=== PATIENT | male | born 1990 | race Caucasian/White ===

== ENCOUNTER 2019-05-25 20:51 | Observation (INO) | payer MEDICAID, SELFPAY ==
--- NOTE | ~2019-05-25 | CT_ITS ---
EXAMINATION: CT pelvis w con EXAM DATE: 05/26/2019 05:12 INDICATION: Penis infection. Ruptured abscess along shaft of penis with pus drainage, edema. TECHNIQUE: Spiral CT pelvis w con was performed following intravenous injection of 100 mL Omnipaque 3 50. Axial, coronal and sagittal images were reviewed. The dose-length product (DLP) for this examin ation was 205.26 mGy-cm. The exposure was tailored according to patient size (auto mA exposure contr ol), and iterative reconstruction (ASIR) was used as additional dose reduction technique. There is n o prior study for comparison. FINDINGS: There is moderate diffuse edema suspected along the shaft of the penis without focal rim-en hancing collection/abscess or gas/emphysema. The perineum and prostate are unremarkable. Cellulitis? There is 3 mm left-sided scrotalith. Normal appendix. Bladder, ischial fossa, rectosigmoid colon are unremarkable. No small bowel dilation . No pelvic abscess. Sclerotic focus in right femoral neck likely bone island. IMPRESSION: Moderate penile edema. Cellulitis? Reviewed, dictated and finalized at location B. [facility] [place]
[2019-05-25 21:24] VITALS: BP 114/64; PULSE 118; RESP 22; TEMP 38.3; O2SAT 100
--- NOTE | 2019-05-26 03:00 | ED.MALEGU ---
HPI - Male Genitourinary General Chief complaint: Urogenital-Male Stated complaint: BUMP ON PENIS Time Seen by Provider: 05/26/19 02:50 Source: patient and RN notes reviewed Mode of arrival: ambulatory Limitations: no limitations History of Present Illness HPI Narrative: A 28 y/o male presents to the ED with a worsening abscess on his penis that appeared 3 days ago. He reports associated pain, swelling, and erythema. He notes that it popped while in triage and that the pain has lessened since then. He denies any fevers, chills, N/V/D, ABD pain, CP, or SOB. Complaint: other (Abscess on penis) Onset (ago): day(s) (3) Duration: progressively worsening Location: penis Associated symptoms: Reports swelling and other (pain and erythema) Related Data Allergies Allergy/AdvReac Type Severity Reaction Status Date / Time No Known Allergies Allergy Verified 10/25/14 17:44 Review of Systems Review of Systems: All systems reviewed & are unremarkable except as noted in HPI and below Constitutional: Constitutional: Denies chills and Denies fever(s) Cardiovascular: Cardiovascular: Denies chest pain Respiratory: Respiratory: Denies dyspnea Gastrointestinal: Gastrointestinal: Denies abdominal pain, Denies diarrhea, Denies nausea and Denies vomiting Genitourinary: Genitourinary: Reports other (painful abscess on his penis with associated swelling and erythema) [facility] Past Medical History Medical History (Updated 05/26/19 @ 05:45 by Maxi Espino DO) ADHD Arm fracture, left Asthma Surgical History Surgical History (Updated 05/26/19 @ 03:14 by Aaron Arredondo) No history of previous surgery Social History Social History (Updated 05/26/19 @ 03:12 by Aaron Arredondo) Smoking packs per day: 0.5 Smoking cigarettes per day: 10.0 Smoking status: Current every day smoker Gender identity (if verbalized by the patient): Male Exam Narrative: Exam Narrative: APPEARANCE: No acute distress, nontoxic, resting in bed EYES: EOMI HEENT: Normocephalic, atraumatic, OMM RESPIRATORY: No respiratory distress Clear to auscultation bilaterally with no rhonchi wheezing or rales. CARDIOVASCULAR: Regular rate and rhythm without murmurs rubs or gallops. ABDOMINAL: Soft, nontender, nondistended, no rebound or guarding : Circumcised male, the penile shaft is diffusely swollen and erythematous the foreskin is swollen at the dorsal base of the penile shaft there is a draining abscess with purulent drainage there is no erythema or swelling of the scrotum MUSCULOSKELETAl: Moves all extremities. No clubbing, cyanosis or edema. NEURO: Awake and alert. Following commands, speech normal, no focal deficits SKIN:: Warm, dry. No rashes lesions or abrasions PSYCHIATRIC: Normal affect/mood, Course Course Emergency Course: Cussed with Dr. Marcelino presentation work-up. Agrees with admission at this time Discussed with Dr. West for urology presentation work-up. Agrees with admission of vancomycin at this time Discussed with patient and family results of workup and diagnosis. Discussed need for admission. Patient and family understand and agree to current treatment plan Vital Signs Vital signs: Vital Signs Temperature 101.0 F H 05/25/19 21:24 Pulse Rate 118 H 05/25/19 21:24 Respiratory Rate 22 H 05/25/19 21:24 Blood Pressure 114/64 05/25/19 21:24 Pulse Oximetry 100 05/25/19 21:24 Temperature 101.0 F H 05/25/19 21:24 Pulse Rate 118 H 05/25/19 21:24 Respiratory Rate 22 H 05/25/19 21:24 Blood Pressure 114/64 05/25/19 21:24 Pulse Oximetry 100 05/25/19 21:24 MDM - Male Genitourinary Lab Data Result diagrams: 05/26/19 03:29 05/26/19 03:29 Labs: Lab Results 05/26/19 05/26/19 05/26/19 Range/Units 03:29 03:29 03:30 WBC 8.9 (4.5-10.0) K/mm3 RBC 4.80 (4.6-6.20) M/mm3 Hgb 13.6 L (14.0-18.0) g/dL Hct 40.8 L (42.0-52.0) % MCV 85.0 (80-100) fl MCH 28.3 (26-34)
[2019-05-26] MEDS: LACTATED RINGERS 1,000 ML 999 ML IV CONT (03:28)
[2019-05-26 03:37] LABS: Basophils Percent Auto 0.4 % (0.2-1.2); Eosinophils Absolute Auto 0.1 K/mm3 (0-0.3); Eosinophils Percent Auto 0.8 % (0-4.4); Hematocrit 40.8 % (42.0-52.0); Hemoglobin 13.6 g/dL (14.0-18.0); Immature Granulocyte Absolute 0.02 K/mm3 (0.00-0.031); Immature Granulocyte Percent A 0.2 % (0-0.5); Lymphocytes Absolute Auto 1.62 K/mm3 (0.9-3.2); Lymphocytes Percent Auto 18.2 % (18.3-44.2); Mean Corpuscular HGB Conc 33.3 g/dl (32-36); Mean Corpuscular Hemoglobin 28.3 pg (26-34); Mean Platelet Volume 10.6 fl (7.4-10.4); Monocytes Absolute Auto 0.8 K/mm3 (0.1-0.6); Monocytes Percent Auto 9.3 % (2.6-8.5); Neutrophils Absolute Auto 6.3 K/mm3 (1.3-6.7); Neutrophils Percent Auto 71.1 % (45.5-73.1); Platelet Count Result 280 k/mm3 (150-375); Red Cell Distribution Width 13.2 % (11.5-14.5); White Blood Count 8.9 K/mm3 (4.5-10.0)
[2019-05-26 03:49] LABS: Lactic Acid Reflex 1.3 mmol/L (0.7-2.1)
[2019-05-26 03:49] LABS: Alanine Aminotransferase 11 U/L (4-50); Albumin Level 4.3 g/dL (3.5-5.1); Alkaline Phosphatase 57 U/L (38-126); Aspartate Amino Transferase 15 U/L (17-59); Bilirubin,Total 0.5 mg/dL (0.2-1.3); Blood Urea Nitrogen 12 mg/dL (9-20); Calcium 9.1 mg/dL (8.4-10.2); Carbon Dioxide 27 mmol/L (22-30); Chloride 99 mmol/L (98-107); Estimated CRCL calculation 96 ml/min; Estimated Glomerular Filt Rate > 60; Glucose 134 mg/dL (75-110); Potassium 3.6 mmol/L (3.4-5.0); Sodium 138 mmol/L (137-145)
[2019-05-26 05:15] LABS: Add Urine Microscopic? NO; Appearance Urine Clear (Clear); Bilirubin Urine Negative (Negative); Blood Urine Negative (Negative); Color Urine Yellow (Yellow); Glucose Urine UA Negative (Negative); Ketones Urine Negative (Negative); Leukocyte Esterase Ur Negative LEU/UL (Negative); Nitrate Urine Negative (Negative); Protein Urine Negative (Negative); Specific Grav Ur 1.013 (1.001-1.035); Urobilinogen Urine Negative mg/dL (<2.0)
--- NOTE | 2019-05-26 05:28 | PC.NURSE ---
spoke with mother, pt is sleeping. pt has not had a prior suicide attempt or been hospitalized.
--- NOTE | 2019-05-26 06:41 | ADMGEN ---
This patient, Efren Flower, was admitted to Medical Room 247-. Patient/family oriented to hospital policies and general routines including ID bracelet, bed and alarms, visiting hours, pain management, procedures, bathroom and other care routines, personal items, smoking policy, room service/diet, and visiting hours. Valuables list has been completed. Information on how to activate the Rapid Response Team has been discussed. Patient/Family are encouraged to report perceived risks to care and to ask questions if they do not understand what they are told or what they should do.
[2019-05-26 06:45] VITALS: BP 100/53; PULSE 79; RESP 16; TEMP 35.9; O2SAT 100; BMI 21.2
[2019-05-26] MEDS: KETOROLAC 30 MG/ML VIAL (*BKC) IV PUSH (08:45)
--- NOTE | 2019-05-26 10:12 | WPDURCON ---
Assessment and Plan Assessment and plan (1) Abscess of shaft of penis: Code(s): N48.29 - Other inflammatory disorders of penis Status: Acute Assessment and Plan: It has drained spontaneously. There is no drainable fluid collection. Patient states the swelling and erythema has much improved. He states he overall feels better. Cultures are pending. He can likely be discharged home on 2 weeks of either Augmentin or clindamycin. No need for surgical intervention today. I will allow him to eat. Urology Consult Note HPI Date Seen: 05/26/19 Requesting Physician: Kelechi Marcelino MD Primary Care Provider: CRITICAL CARE CNS PHYSICIAN Consult Narrative Narrative: Efren Flower is a 28 year old male who was noted penile pain and swelling for the last 3-4 days. No significant voiding issues. He notice a pustule on the dorsal aspect of the base of his penis. This prompted evaluation in the ER. While in the ER he squeezed the pustule in and drained purulent fluid. The swelling has improved. He denies any high spiking fevers. He was admitted the hospital placed on IV antibiotics. He denies any previous history of groin abscesses. He is overall feeling improved. Review of Systems Review of Systems: All systems reviewed & are unremarkable except as noted in HPI and below Genitourinary: Genitourinary: Denies dysuria PMFSH Past Medical History Medical History (Updated 05/26/19 @ 05:45 by Maxi Espino DO) ADHD Arm fracture, left Asthma Surgical History Surgical History (Updated 05/26/19 @ 03:14 by Aaron Arredondo) No history of previous surgery Social History Social History (Updated 05/26/19 @ 03:12 by Aaron Arredondo) Smoking packs per day: 1 Smoking cigarettes per day: 20.0 Years smoked: 10 Smoking pack-years: 10.00 Smoking status: Current every day smoker Tobacco type: cigarettes Alcohol intake: unknown Substance use: current Substance use type: marijuana and crack/cocaine Gender identity (if verbalized by the patient): Male Spiritual care concerns: No Agree to blood products: No Meds Home Medications and Allergies Home Medications Medication Instructions Recorded Confirmed Type No Home Medications 05/26/19 05/26/19 History Allergies Allergy/AdvReac Type Severity Reaction Status Date / Time No Known Allergies Allergy Verified 10/25/14 17:44 Vital Signs Vital Signs - 24 hr 05/25/19 21:24 05/26/19 06:45 Temperature 101.0 F H 96.6 F L Pulse Rate 118 H 79 Respiratory Rate 22 H 16 Blood Pressure 114/64 100/53 L Pulse Oximetry 100 100 Exam Const: General: no acute distress Other: States he feels much better. HENMT: Mouth: Yes moist mucous membranes abnormal Other: He has very poor dentition. Eyes: General: appearance normal, both eyes and all related structures Neck: Lymphatic: lymphadenopathy not noted Resp: Effort & Inspection: normal respiratory effort Cardio: Rate: regular rate GI: Inspection: non-distended : Male General Exam: Yes erythema (Of penile shaft. Along with swelling.) Other: He is circumcised. There is an open area at the base of the dorsal aspect of his penis. It appears widely open. It is draining some scant bloody substance. There is no drainable abscess in the area. I examined the CT scan as well and there is no drainable abscess Scrotum is not on vault. Skin: General skin exam: erythema (Of the penile area.) Neuro: Sensory Exam: normal sensation Extrem: General: normal to inspection Psych: Speech and movement: Normal speech and movement present Results Labs CBC & Chem 7: 05/26/19 03:29 05/26/19 03:29 Labs: Short CBC 05/26/19 Range/Units 03:29 WBC 8.9 (4.5-10.0) K/mm3 Hgb 13.6 L (14.0-18.0) g/dL Hct 40.8 L (42.0-52.0) % Plt Count 280 (150-375) k/mm3 [facility] 05/26/19 03:29 Sodium 138 Potassium 3.6 Chloride 99 Carbon Dioxide 27 BUN
[2019-05-26 14:00] VITALS: BP 96/52; PULSE 80; RESP 16; TEMP 36.1; O2SAT 99
--- NOTE | 2019-05-26 16:07 | PM.IMHP ---
H&P: HPI History of Present Illness Chief complaint: SEPSIS,PENILE ABSCESS Narrative: Date of visit 05/26/2019 1100. Efren Flower is a 28 year old white male who presented to the emergency room with swollen red infected perineal area. on dorsum his penis he had a small furuncle developed 2-3 days ago had progressively swollen become more tender. Apparently the waiting room it had opened and drained and started feeling better. He was seen by Urology this a.m. and suggest to continue oral antibiotics as an outpatient. No previous history of skin infections and no history of diabetes Review of Systems Review of Systems: Narrative: Constitutional: Weight has been steady appetite good no fever till the present illness Eye: No double vision scotoma Mouth no pharyngitis laryngitis Pulmonary no shortness breath wheezing or cough CV no chest pain palpitation GI no melena hematochezia diarrhea as per present illness no difficulty with urination no dysuria Muscle skeletal no particular joint discomfort Integument no skin breakdown rashes other than presenting infection Psych no in due to depression Neuro dosing could be at present time has had in the distant past no seizures Remainder review of systems if not documented here were evaluated found to be negative [facility] Past Medical History Medical History (Updated 05/26/19 @ 05:45 by Maxi Espino DO) ADHD Arm fracture, left Asthma Surgical History Surgical History (Updated 05/26/19 @ 03:14 by Aaron Arredondo) No history of previous surgery Family History Family History Father No problems noted. Mother No problems noted. Social History Social History (Updated 05/26/19 @ 03:12 by Aaron Arredondo) Smoking packs per day: 1 Smoking cigarettes per day: 20.0 Years smoked: 10 Smoking pack-years: 10.00 Smoking status: Current every day smoker Tobacco type: cigarettes Alcohol intake: unknown Substance use: current Substance use type: marijuana and crack/cocaine Gender identity (if verbalized by the patient): Male Spiritual care concerns: No Agree to blood products: No Meds Home Medications and Allergies Home Medications Medication Instructions Recorded Confirmed Type No Home Medications 05/26/19 05/26/19 History Allergies Allergy/AdvReac Type Severity Reaction Status Date / Time No Known Allergies Allergy Verified 10/25/14 17:44 Vital Signs Vital Signs - 24 hr 05/25/19 21:24 05/26/19 06:45 05/26/19 14:00 Temperature 38.3 C H 35.9 C L 36.1 C L Pulse Rate 118 H 79 80 Respiratory Rate 22 H 16 16 Blood Pressure 114/64 100/53 L 96/52 L Pulse Oximetry 100 100 99 Exam Narrative: Exam Narrative: At present time blood pressure 100/52 temperature 36.6? pulse 78. On admission has T-max of 38.3? Pupils equal reactive to light sclera anicteric Mouth normal central upper tooth missing Neck supple no adenopathy thyromegaly carotid bruits Lungs clear CV no murmurs gallops rubs or clicks Abdomen is soft nontender no masses Extremities without edema distal pulses 2+ Neuro alert pleasant cooperative no focal deficits is a circumcised male DS shaft is sent for scan is slightly air edematous and erythematous and there is area on the proximal dorsum that has obviously drained, scrotum is spared H&P: Results Labs Labs: Short CBC 05/26/19 Range/Units 03:29 WBC 8.9 (4.5-10.0) K/mm3 Hgb 13.6 L (14.0-18.0) g/dL Hct 40.8 L (42.0-52.0) % Plt Count 280 (150-375) k/mm3 BMP 05/26/19 03:29 Sodium 138 Potassium 3.6 Chloride 99 Carbon Dioxide 27 BUN 12 Creatinine 1.00 Glucose 134 H Calcium 9.1 Liver Function 05/26/19 Range/Units 03:29 Total Bilirubin 0.5 (0.2-1.3) mg/dL AST 15 L (17-59) U/L ALT 11 (4-50) U/L Alkaline Phosphatase 57 (38-126) U/L Albumin 4.3 (3.5-5.1) g/dL Urine 05/26/19 Range/Units 04:59 Urine Color Yellow (Yellow) Urine
--- NOTE | 2019-05-28 18:21 | PM.DS ---
DS: Diagnosis Admitting Diagnosis Admitting Diagnosis: Other inflammatory disorders of penis Discharge Diagnosis (1) Abscess of shaft of penis: Code(s): N48.29 - Other inflammatory disorders of penis Status: Acute Assessment and Plan: Opened and drained spontaneously. Cultures were obtained and will probably be either strep per Staph bacteria. Receiving vancomycin and will discharge home on oral antibiotics Augmentin and doxycycline to cover for both stress bands to help (2) Sepsis: Code(s): A41.9 - Sepsis, unspecified organism Status: Acute Assessment and Plan: By criteria of tachycardia and borderline fever probably met diagnosis of sepsis which quickly resolved. Lactic acid normal. Will plan on discharging on oral antibiotics as per urology recommendation also DS: Summary Hospital Course Hospital Course: 28-year-old white male presented with small furuncle abscess that is the proximal shaft of his penis. Drain spontaneously in the emergency room and swelling subsided. With seen by Urology fell could be discharged on oral medication and follow-up with primary. Pelvic rest until healed Time Spent with Patient Time attestation: Total time spent providing and/or coordinating discharge services: Time spent: Less than 30 minutes Exam Narrative: Exam Narrative: Condition on discharge: Blood pressure 100/60 and had been afebrile for 12 hours. Swelling of penis had subsided , no further drainage, discharged home on oral antibiotics DS: Data Data Completed and Pending Labs on day of discharge: Preliminary micro results at discharge 05/26/19 03:29 Blood Culture - Preliminary Blood 05/26/19 04:59 Blood Culture - Preliminary Blood 05/26/19 03:31 Anaerobic Culture - Preliminary Abscess Aerobic Culture - Preliminary Discharge Plan Discharge Attending physician on discharge: Jitendra Dixon Consulting providers: Ronan Cullen ; Vinay West Discharging Clinician: Jitendra Dixon Anticipated Discharge Date/Time: 05/26/19 16:23 Patient Disposition: Home, Self-Care Activity: as tolerated and pelvic rest Diet: as tolerated Patient Instructions: Antibiotic Form, How to Stop Smoking (DC) Stand Alone Forms: General Discharge Information Follow-up/Referrals: Ronan Cullen MD [Physician] - 2 Weeks Discharge Medications: New amoxicillin-pot clavulanate [Augmentin] 875-125 mg tablet 1 tablet PO Q12H Qty: 14 RF: 0 doxycycline hyclate 100 mg capsule 100 mg PO DAILY Qty: 14 RF: 0 tramadol [Ultram] 50 mg tablet 50 mg PO Q6H PRN (Reason: pain) Qty: 20 RF: 0 No Action No Home Medications RF: 0 Date of admission: 05/26/19 05:23 Primary Care Provider: PHYSICIAN,POLICE CRIME SCENE TECHNICIAN Admitting Provider: Kelechi Marcelino Discharge Date/Time: 05/26/19 19:35 Attending physician on admission: Kelechi Marcelino Condition: Stable
== END 2019-05-26 19:35 | disposition home or self-care (01) ==
LOC: ANHED 05-26 05:31 → ANH2MED 05-26 05:45
PROVIDERS: Admitting Provider Family Medicine; Emergency Provider Emergency Medicine; Visit Provider Internal Medicine
DX: A41.9 Sepsis, unspecified organism (principal); N48.21 Abscess of corpus cavernosum and penis; F17.210 Nicotine dependence, cigarettes, uncomplicated
CPT/HCPCS: 36415; 72193; 80053; 81003; 83605; 85025; 87040; 87070; 87075; 87076; 87077; 87185; 87205; 96365; 96366; 96367; 96375; 99285; G0378; G0379; J0131; J1885; J3370; J7120; Q9967

== ENCOUNTER 2019-07-07 12:09 | Emergency (ER) | payer MEDICAID, SELFPAY ==
[2019-07-07 12:33] VITALS: BP 113/64; PULSE 92; RESP 18; TEMP 36.3; O2SAT 100
--- NOTE | 2019-07-07 12:34 | ECG_ITS ---
Measurements Intervals [place] Rate: 86 P: -15 OR: 136 QRS: -22 QRSD: 101 T: -3 QT: 339 QTc: 406 Interpretive Statements SINUS RHYTHM VOLTAGE CRITERIA FOR LVH MINIMAL Q WAVES- ANTEROLAT/LAT LEADS BORDERLINE ECG Electronically Signed On 07-07-2019 13:43:50 CDT by Royer Garza D.O.
--- NOTE | 2019-07-07 12:46 | PC.NURSE ---
at 1232 pt initially told provider no transportation. aware of possible need for further evaluation in er and possibility of transfer by ems. stated sister lives down the street and may be able to provide transportion if needed.
--- NOTE | 2019-07-07 12:47 | ED.CHESTPAIN ---
HPI - Chest Pain General Chief Complaint: Chest Pain Stated Complaint: Chest Pain Time Seen by Provider: 07/07/19 12:47 Source: patient and RN notes reviewed History of Present Illness HPI narrative: Patient is a 29-year-old male that presents the urgent care with complaints of left-sided chest pain. Patient states that he was tased by police in the back 2 days ago for a possible warrant. Patient states that he has had chest pain ever since he left the halfway that day. Patient states is been consistent. Denies of any recent drug or alcohol use. Patient denies any radiation of the pain down the arm or to the jaw. States that it feels tight in the left chest . Patient denies any shortness of breath. No other acute complaints. 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 No acute distress noted. Patient read the plan of care. Related Data Home Medications Medication Instructions Recorded Confirmed No Home Medications 05/26/19 05/26/19 Allergies Allergy/AdvReac Type Severity Reaction Status Date / Time No Known Allergies Allergy Verified 10/25/14 17:44 Review of Systems Review of Systems: Narrative: CONSTITUTIONAL: Denies fever, chills, or sweats. EYES: Denies visual changes, redness, or discharge. ENT: Denies rhinorrhea, congestion, sore throat, or otalgia. CARDIOVASCULAR: Reports of left-sided chest pain without palpitations or radiation RESPIRATORY: Denies cough or dyspnea. GASTROINTESTINAL: Denies abdominal pain, nausea, vomiting, or diarrhea. GENITOURINARY: Denies dysuria or hematuria. SKIN: Denies rash or itching. MUSCULOSKELETAL: Denies back pain, joint pain, or myalgia. NEUROLOGIC: Denies headache, numbness, or weakness. All other systems reviewed are negative, except as documented in HPI. [facility] Past Medical History Medical History (Updated 07/07/19 @ 12:57 by SYLWIA Harris) ADHD Arm fracture, left Asthma Surgical History Surgical History (Updated 05/26/19 @ 03:14 by Aaron Arredondo) No history of previous surgery Family History Family History (Updated 05/26/19 @ 16:17 by Jitendra Dixon MD) Father No problems noted. Mother No problems noted. Social History Social History (Updated 05/26/19 @ 03:12 by Aaron Lu Smoking packs per day: 1 Smoking cigarettes per day: 20.0 Years smoked: 10 Smoking pack-years: 10.00 Smoking status: Current every day smoker Tobacco type: cigarettes Alcohol intake: unknown Substance use: current Substance use type: marijuana and crack/cocaine Gender identity (if verbalized by the patient): Male Spiritual care concerns: No Agree to blood products: No Comments At the time of my signature, I reviewed and agree with the nursing past medical, surgical, social, and family history. There is no relevant family history pertinent to the patient complaint. Exam Narrative: Exam Narrative: GENERAL: This is a well-nourished, well-developed patient, in no apparent distress. HEAD: normocephalic, atraumatic. EYES: PERRL. Sclera clear/white. Vision is grossly intact. EARS: External ears normal, auditory canals clear and without drainage, TMs normal without perforation. Hearing grossly intact. NOSE: External nose normal with no obvious nasal discharge, nares without redness, no rhinorrhea. THROAT: Mucous membranes moist, posterior pharynx clear. NECK: Neck supple, non-tender without lymphadenopathy, masses or thyromegaly. CARDIOVASCULAR: Regular rate and rhythm without murmurs, gallops, or rubs. Nonreproducible left chest pain RESPIRATORY: Clear to auscultation. Breath sounds equal bilaterally. No wheezes, rales, or rhonchi. SKIN: warm, intact with no suspicious lesions or rash, good texture and turgor. NEURO: awake, alert, and oriented to person, place and time. There were no obvious focal neurologic abnormalities. EXTREMITIES: No clubbing, cyanosis, or edema. Course Vital
--- NOTE | 2019-07-07 12:52 | PC.NURSE ---
screen machine operator at bedside. pt has attempted to find tranportation but unable at this time.
== END 2019-07-07 12:58 | disposition left against medical advice (07) ==
PROVIDERS: Emergency Provider Nurse Practitioner Family
DX: R07.9 Chest pain, unspecified (principal); F17.210 Nicotine dependence, cigarettes, uncomplicated; F90.9 Attention-deficit hyperactivity disorder, unspecified type; J45.909 Unspecified asthma, uncomplicated
CPT/HCPCS: 93005; 99213; G0463

== ENCOUNTER 2019-07-07 13:36 | Emergency (ER) | payer MEDICAID, SELFPAY ==
--- NOTE | ~2019-07-07 | XR_ITS ---
EXAMINATION: XR chest 2V DATE: 07/07/2019 14:10 INDICATION: Midsternal chest pain. Shortness of breath. TECHNIQUE: Frontal and lateral views of the chest were obtained. COMPARISON: Chest 2 views 05/21/2013 FINDINGS: The chest demonstrates clear lungs without pneumonia, pleural effusion, or pneumothorax. Th e heart size is normal. There are multiple old healed right rib fractures. There is an old healed fra cture of right clavicle. IMPRESSION: 1. No acute cardiopulmonary disease. Reviewed, dictated and finalized at location A.
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
--- NOTE | 2019-07-07 13:59 | ECG_ITS ---
Measurements Intervals [place] Rate: 83 P: 75 ID: 132 QRS: 81 QRSD: 100 T: 56 QT: 343 QTc: 403 Interpretive Statements SINUS RHYTHM MINIMAL Q WAVES- ANTEROLAT/INF LEADS BORDERLINE ECG Electronically Signed On 07-07-2019 14:02:42 CDT by Royer Garza D.O.
[2019-07-07 14:01] VITALS: BP 116/69; PULSE 83; RESP 17; TEMP 36.3; O2SAT 100
[2019-07-07 14:07] LABS: Basophils Absolute Auto 0.1 K/mm3 (0.0-0.1); Basophils Percent Auto 0.9 % (0.2-1.2); Eosinophils Absolute Auto 0.1 K/mm3 (0-0.3); Hemoglobin 14.8 g/dL (14.0-18.0); Immature Granulocyte Absolute 0.02 K/mm3 (0.00-0.031); Immature Granulocyte Percent A 0.3 % (0-0.5); Lymphocytes Absolute Auto 1.57 K/mm3 (0.9-3.2); Lymphocytes Percent Auto 24.1 % (18.3-44.2); Mean Corpuscular HGB Conc 32.2 g/dl (32-36); Mean Corpuscular Hemoglobin 28.1 pg (26-34); Mean Corpuscular Volume 87.5 fl (80-100); Mean Platelet Volume 10.4 fl (7.4-10.4); Monocytes Absolute Auto 0.6 K/mm3 (0.1-0.6); Monocytes Percent Auto 9.4 % (2.6-8.5); Neutrophils Absolute Auto 4.1 K/mm3 (1.3-6.7); Neutrophils Percent Auto 63.3 % (45.5-73.1); Platelet Count Result 279 k/mm3 (150-375); Red Blood Count 5.26 M/mm3 (4.6-6.20); Red Cell Distribution Width 14.9 % (11.5-14.5); White Blood Count 6.5 K/mm3 (4.5-10.0)
[2019-07-07] MEDS: KETOROLAC 30 MG/ML VIAL (*BKC) IV PUSH (14:08)
[2019-07-07 14:17] VITALS: PULSE 83
[2019-07-07 14:19] LABS: Blood Urea Nitrogen 8 mg/dL (9-20); Calcium 8.9 mg/dL (8.4-10.2); Carbon Dioxide 29 mmol/L (22-30); Chloride 104 mmol/L (98-107); Estimated CRCL calculation 126 ml/min; Estimated Glomerular Filt Rate > 60; Glucose 83 mg/dL (75-110); INR 0.9; Potassium 3.8 mmol/L (3.4-5.0); Prothrombin Time 12.3 Seconds (11.1-14.7); Sodium 139 mmol/L (137-145)
[2019-07-07 14:20] VITALS: BP 110/62; PULSE 73; RESP 15; O2SAT 99
[2019-07-07 14:20] LABS: Partial Thromboplastin Time 28.8 SECONDS (22.3-36.8)
[2019-07-07 14:30] LABS: Troponin I < 0.012 ng/mL (0.000-0.034)
[2019-07-07 14:36] VITALS: TEMP 36.3
[2019-07-07 14:44] LABS: Creatine Kinase 119 U/L (55-170)
[2019-07-07 17:11] VITALS: BP 118/75; PULSE 66; RESP 17; O2SAT 100
== END 2019-07-07 17:15 | disposition home or self-care (01) ==
PROVIDERS: Emergency Provider General Practice
DX: R07.89 Other chest pain (principal); F17.210 Nicotine dependence, cigarettes, uncomplicated; R94.31 Abnormal electrocardiogram [ECG] [EKG]
CPT/HCPCS: 36415; 71046; 80048; 82550; 84484; 85025; 85610; 85730; 93005; 96374; 99284; J1885

== ENCOUNTER 2019-09-05 21:47 | Emergency (ER) | payer MEDICAID, SELFPAY ==
[2019-09-05 21:49] VITALS: BP 127/78; PULSE 96; RESP 21; TEMP 36.8; O2SAT 100
--- NOTE | 2019-09-05 21:52 | ECG_ITS ---
Measurements Intervals [place] Rate: 94 P: 78 NH: 125 QRS: 131 QRSD: 102 T: 70 QT: 347 QTc: 436 Interpretive Statements SINUS RHYTHM RIGHT AXIS DEVIATION MINIMAL Q WAVES- INFERIOR LEADS BASELINE ARTIFACT- II, III, AVF BORDERLINE ECG Electronically Signed On 09-06-2019 7:12:24 CDT by Royer Garza D.O.
--- NOTE | 2019-09-05 21:55 | PC.NURSE ---
Patient given 2mg Narcan per verbal order read-back from EDP [facility]. Patient is awake and speaking at this time.
--- NOTE | 2019-09-05 21:56 | PC.NURSE ---
not able to get EKG at this time due to pt moving and refusing to lay straight. notified.
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
[2019-09-05 22:10] LABS: Glucose Point of Care 167 (65-105)
--- NOTE | 2019-09-05 22:13 | PC.NURSE ---
pt awake and speaking at this time. pt refusing straight cath at this time. pt keeps calling everyone in room bitch.
--- NOTE | 2019-09-05 22:28 | PC.NURSE ---
pt being nicer to staff at this time. pt states he hasn't taken a drug in a while but found an old stash of fentanyl tonight, which is what he states he took. this rn was able to get ekg on pt. pt agrees to getting blood drawn. he states he isn't able to urinate but will try in a few minutes. refuses straight cath. notified.
--- NOTE | 2019-09-05 22:55 | PC.NURSE ---
pt still refusing straight cath. notified.
[2019-09-05 22:56] LABS: Basophils Percent Auto 0.4 % (0.2-1.2); Eosinophils Absolute Auto 0.1 K/mm3 (0-0.3); Eosinophils Percent Auto 0.8 % (0-4.4); Hematocrit 46.7 % (42.0-52.0); Hemoglobin 15.3 g/dL (14.0-18.0); Immature Granulocyte Absolute 0.03 K/mm3 (0.00-0.031); Immature Granulocyte Percent A 0.3 % (0-0.5); Lymphocytes Absolute Auto 0.91 K/mm3 (0.9-3.2); Lymphocytes Percent Auto 8.7 % (18.3-44.2); Mean Corpuscular HGB Conc 32.8 g/dl (32-36); Mean Corpuscular Hemoglobin 28.5 pg (26-34); Mean Platelet Volume 10.1 fl (7.4-10.4); Monocytes Absolute Auto 0.7 K/mm3 (0.1-0.6); Monocytes Percent Auto 6.7 % (2.6-8.5); Neutrophils Absolute Auto 8.7 K/mm3 (1.3-6.7); Neutrophils Percent Auto 83.1 % (45.5-73.1); Platelet Count Result 288 k/mm3 (150-375); Red Blood Count 5.37 M/mm3 (4.6-6.20); Red Cell Distribution Width 14.2 % (11.5-14.5); White Blood Count 10.5 K/mm3 (4.5-10.0)
[2019-09-05 23:00] VITALS: BP 105/69; PULSE 90; RESP 12; O2SAT 98
[2019-09-05 23:07] LABS: Ethanol < 10 mg/dL (<10)
[2019-09-05 23:08] LABS: Alanine Aminotransferase 29 U/L (4-50); Albumin Level 4.7 g/dL (3.5-5.1); Alkaline Phosphatase 62 U/L (38-126); Aspartate Amino Transferase 44 U/L (17-59); Bilirubin,Total 0.4 mg/dL (0.2-1.3); Blood Urea Nitrogen 11 mg/dL (9-20); Calcium 9.6 mg/dL (8.4-10.2); Carbon Dioxide 32 mmol/L (22-30); Chloride 101 mmol/L (98-107); Estimated Glomerular Filt Rate > 60; Glucose 82 mg/dL (75-110); Potassium 4.1 mmol/L (3.4-5.0); Sodium 141 mmol/L (137-145)
--- NOTE | 2019-09-05 23:24 | PC.NURSE ---
pt still refusing straight cath. notified.
--- NOTE | 2019-09-05 23:53 | PC.NURSE ---
pt refusing to give urine sample at this time. refusing straight cath. notified.
[2019-09-06] VITALS (7 sets, daily range): BP systolic 86–114; BP diastolic 56–88; PULSE 80–86; RESP 12–19; O2SAT 95–100
--- NOTE | 2019-09-06 00:23 | PC.NURSE ---
pt refusing to urinate. refusing straight cath.
--- NOTE | 2019-09-06 01:05 | PC.NURSE ---
pt still refusing to urinate & straight cath. pt states you dont need the sample right now and i cant go. either you can go or you can not. this rn informed pt that he has been her for over 3 hours and that's how long weve needed the sample. this rn asks pt if he can atleast try to give sample, pt states no, im not giving you a sample. pt informed of importance of receiving sample. pt states i dont care. i dont want to give you my sample. notified.
--- NOTE | 2019-09-06 03:34 | PC.NURSE ---
pt states he is able to give me urine sample at this time but states i want to do it alone. this rn gave pt urinal and placed at bedside. pt told this rn with return in a few minutes to collect specimen.
--- NOTE | 2019-09-06 03:48 | PC.NURSE ---
pt still trying to give urine sample at this time.
--- NOTE | 2019-09-06 05:49 | PC.NURSE ---
pt tried to call his next of kin 2x, no response.
--- NOTE | 2019-09-06 06:03 | PC.NURSE ---
this rn called warehouse assistant about pt. this rn informed her that pt has no money or phone, [place] called pt sister 2x, no response. warehouse assistant states to keep trying to call sister. if pt doesnt have a ride when care management gets here, [place] sopervisor will see if she can get pt a bus pass. charge nurse notified.
== END 2019-09-06 07:23 | disposition home or self-care (01) ==
PROVIDERS: Emergency Provider General Practice
DX: T40.601A Poisoning by unspecified narcotics, accidental (unintentional), initial encounter (principal); R94.31 Abnormal electrocardiogram [ECG] [EKG]
CPT/HCPCS: 36415; 80053; 80307; 82948; 85025; 93005; 99284